=== PATIENT | female | born 1940 | race Caucasian/White ===

== ENCOUNTER 2017-05-05 13:28 | Emergency (ER) | payer MEDICARE, BC ==
[~2017-05-05] VITALS: Ht 172.7 cm; Wt 75.0 kg
[2017-05-05 13:40] VITALS: BP 112/58; PULSE 71; RESP 21; TEMP 99.5; O2SAT 93
[2017-05-05] MEDS ORDERED: EPINEPHrine HCL (1:1000) 1 MG/ML VIAL IM ONE (13:45)
[2017-05-05] MEDS ORDERED: SODIUM CHLORIDE 0.9% FLUSH 10 ML FLUSH IVF PRN (13:45)
[2017-05-05 13:46] VITALS: BP 115/64; PULSE 78; RESP 19; O2SAT 96
[2017-05-05 13:57] VITALS: BP 115/64; PULSE 76
[2017-05-05 14:09] LABS: AUTOMATED NEUTROPHIL # 6.7 TH/MM3 (1.8-7.7); BASOPHIL % 0.4 % (0.0-2.0); EOSINOPHIL # 0.4 TH/MM3 (0-0.4); EOSINOPHIL % 3.9 % (0.0-4.0); HEMATOCRIT 45.5 % (35.0-46.0); HEMO FLAGS DIFF FINAL; LYMPH % 19.2 % (9.0-44.0); LYMPHOCYTE # 1.9 TH/MM3 (1.0-4.8); MEAN CELL VOLUME 95.3 FL (80.0-100.0); MEAN CORPUSCULAR HEMOGLOBIN 31.6 PG (27.0-34.0); MEAN CORPUSCULAR HGB CONC 33.1 % (32.0-36.0); MONO % 7.7 % (0.0-8.0); NEUT % 68.8 % (16.0-70.0); PLATELET COUNT 299 TH/MM3 (150-450); RED BLOOD COUNT 4.78 MIL/MM3 (4.00-5.30); RED CELL DISTRIBUTION WIDTH 13.4 % (11.6-17.2); WHITE BLOOD COUNT 9.7 TH/MM3 (4.0-11.0)
[2017-05-05 14:14] LABS: APTT (PATIENT) 25.9 SEC (24.3-30.1); PROTHROMBIN TIME - PATIENT 11.6 SEC (9.8-11.6)
--- NOTE | 2017-05-05 14:16 | RADRPT ---
EXAM DATE/TIME: 05/05/2017 14:04 [place] COMPARISON: No previous studies available for comparison. INDICATIONS : Chest pains, radiating into left arm with numbness. MEDICAL HISTORY : Myocardial infarction. SURGICAL HISTORY : Coronary artery stent. ENCOUNTER: Initial ACUITY: 2 days PAIN SCORE: 5/10 LOCATION: Left chest FINDINGS: A single view of the chest demonstrates the lungs to be symmetrically aerated without evidence of mas s, infiltrate or effusion. The cardiomediastinal contours are unremarkable. Osseous structures are intact. CONCLUSION: 1. No acute cardiopulmonary findings. Edson Lilly MD on May 05, 2017 at 14:14 Board Certified Radiologist. This report was verified electronically.
[2017-05-05 14:33] LABS: ANION GAP 8 MEQ/L (5-15); BICARBONATE 24.7 MEQ/L (21.0-32.0); CHLORIDE 106 MEQ/L (98-107); GLOMERULAR FILTRATION RATE 48 ML/MIN (>89); MAGNESIUM 1.8 MG/DL (1.5-2.5); SODIUM (NA) 139 MEQ/L (136-145)
[2017-05-05 14:34] LABS: BLOOD UREA NITROGEN 12 MG/DL (7-18); CREATINE KINASE 97 U/L (26-192)
--- NOTE | 2017-05-05 15:44 | PD ---
HPI Chief Complaint: Allergic/Adverse Reaction Time Seen by Provider: 13:32 Travel History International Travel<30 days: No Contact w/Intl Traveler<30days: No Traveled to known affect area: No History of Present Illness HPI 76-year-old female that presents to the ED for evaluation of possible early reaction. Patient came by ambulance for evaluation of this. Patient states that she got bit by something on her legs. Per patient she is not sure what it was but it seems like she got bit mainly on the left leg. Patient started developing this rash on her chest as well as sensation that her throat was closing. Ambulance was called and she was given Solu-Medrol and Benadryl. Patient felt improvement and the itching stopped. Per patient she does not feel swollen or is itchy as before. She does have a significant rash to her chest and back. She also has what appears to be bites to the legs bilaterally more noted on the left than the right. She does have some small soft tissue swelling on the left lower lip. She states that she has some chest discomfort when the symptoms started but not anymore. She denies any fevers chills or sweats. No urinary or bowel movement issues. No allergies to medication. Per patient the chest pain was more like a pressure and was 5 out of 10. She denies any headache. No blurry vision. She does state feeling somewhat sleepy but she attributes this to the Benadryl. [facility] Past Medical History Cardiac Catheterization: Yes Cardiovascular Problems: Yes (STENTS X5) Chest Pain: Yes Diabetes: Yes Patient Takes Glucophage: Yes Social History Alcohol Use: Yes Tobacco Use: No Substance Use: Yes Allergies-Medications (Allergen,Severity, Reaction): Coded Allergies: No Known Allergies (Unverified , 05/05/17) Review of Systems Except as stated in HPI: all other systems reviewed are Neg Physical Exam Narrative GENERAL: SKIN: Warm and dry. Patient has what appears to be an erythematous hives looking rash to the chest especially underneath the breasts and axilla bilaterally. Motor on the left side than the right. Patient does have what appears to be insectlike bites to the lower legs noted on the lateral and medial malleolus. Erythematous and swollen but not painful. Pruritic. Patient does have what appears to be a small amount of soft tissue edema to the left lower lip. HEAD: Atraumatic. Normocephalic. EYES: Pupils equal and round. No scleral icterus. No injection or drainage. ENT: No nasal bleeding or discharge. Mucous membranes pink and moist. Tongue is midline. No uvula deviation. NECK: Trachea midline. No JVD. CARDIOVASCULAR: Regular rate and rhythm. No murmurs, S3, S4. RESPIRATORY: No accessory muscle use. Clear to auscultation. Breath sounds equal bilaterally. GASTROINTESTINAL: Abdomen soft, non-tender, nondistended. Hepatic and splenic margins not palpable. MUSCULOSKELETAL: Extremities without clubbing, cyanosis, or edema. No obvious deformities. Full range of motion of the upper and lower extremities bilaterally. 2+ pulses bilaterally. NEUROLOGICAL: Awake and alert. No obvious cranial nerve deficits. Motor grossly within normal limits. Five out of 5 muscle strength in the arms and legs. Normal speech. PSYCHIATRIC: Appropriate mood and affect; insight and judgment normal. Data Data Last Documented VS Vital Signs Date Time Temp Pulse Resp B/P (MAP) Pulse Ox O2 Delivery O2 Flow Rate FiO2 05/05/17 13:57 76 115/64 05/05/17 13:46 19 96 Room Air 05/05/17 13:40 99.5 Orders Orders Electrocardiogram (05/05/17 13:38) Basic Metabolic Panel (Bmp) (05/05/17 13:38) Ckmb (Isoenzyme) Profile (05/05/17 13:38) Complete Blood Count With Diff (05/05/17 13:38) Magnesium (Mg) (05/05/17 13:38) Prothrombin Time / Inr (Pt) (05/05/17 13:38) Act Partial Throm Time (Ptt) (05/05/17 13:38) Troponin I (05/05/17 13:38) Chest, Single Ap (05/05/17 13:38) Ecg Monitoring (05/05/17 13:38) Bilateral Bp Monitoring (05/05/17 13:38) Iv Access Insert/Monitor (05/05/17 13:38) Oximetry (05/05/17 13:38) Oxygen Administration (05/05/17 13:38) Sodium Chloride 0.9% Flush (Ns Flush) (05/05/17 13:45) Epinephrine (1:1000) Inj (Adrenalin (1:1 (05/05/17 13:45) Labs Laboratory Tests Test 05/05/17 13:45 White Blood Count 9.7 TH/MM3 Red Blood Count 4.78 MIL/MM3 Hemoglobin 15.1 GM/DL Hematocrit 45.5 % Mean Corpuscular Volume 95.3 FL Mean Corpuscular Hemoglobin 31.6 PG Mean Corpuscular Hemoglobin Concent 33.1 % Red Cell Distribution Width 13.4 % Platelet Count 299 TH/MM3 Mean Platelet Volume 8.2 FL Neutrophils (%) (Auto) 68.8 % Lymphocytes (%) (Auto) 19.2 % Monocytes (%) (Auto) 7.7 % Eosinophils (%) (Auto) 3.9 % Basophils (%) (Auto) 0.4 % Neutrophils # (Auto) 6.7 TH/MM3 Lymphocytes # (Auto) 1.9 TH/MM3 Monocytes # (Auto) 0.7 TH/MM3 Eosinophils # (Auto) 0.4 TH/MM3 Basophils # (Auto) 0.0 TH/MM3 CBC Comment DIFF FINAL Differential Comment Prothrombin Time 11.6 SEC Prothromb Time International Ratio 1.0 RATIO Activated Partial Thromboplast Time 25.9 SEC Blood Urea Nitrogen 12 MG/DL Creatinine 1.11 MG/DL Random Glucose 232 MG/DL Calcium Level 9.2 MG/DL Magnesium Level 1.8 MG/DL Sodium Level 139 MEQ/L Potassium Level 4.0 MEQ/L Chloride Level 106 MEQ/L Carbon Dioxide Level 24.7 MEQ/L Anion Gap 8 MEQ/L Estimat Glomerular Filtration Rate 48 ML/MIN Total Creatine Kinase 97 U/L Troponin I LESS THAN 0.02 NG/ML MDM Medical Decision Making Medical Screen Exam Complete: Yes Emergency Medical Condition: Yes Medical Record Reviewed: Yes Interpretation(s) CBC & BMP Diagram 05/05/17 13:45 Calcium Level 9.2, Magnesium Level 1.8 Last Impressions Chest X-Ray 05/05/17 1258 Signed Impressions: Service Date/Time: Friday, May 05, 2017 14:04 - CONCLUSION: 1. No acute cardiopulmonary findings. Edson Lilly MD EKG shows sinus rhythm with no sign of acute ischemia or arrhythmia read by me and attending. Troponin and CK-MB negative. Differential Diagnosis Anaphylaxis versus allergic reaction versus insect bite versus chest pain versus atypical chest pain Narrative Course 76-year-old female that presents to the ED for evaluation of possible allergic reaction. Patient was properly examined and was found to have signs and symptoms consistent with appears to be allergic reaction. Does not appear to be anaphylactic at this time but she does appear to have some soft tissue swelling to the left lower lip. Patient was given epinephrine here as per my attendings recommendations. EKG and blood work was ordered. Patient will be observed for the next 3 hours. Labs and imaging showed no sign of acute disease. Patient's chest pain was completely resolved after EpiPen. Case was discussed with my attending Dr. Yang for agrees with plan. Patient was observed for 3 hours with no worsening of symptoms and actually improvement of her swelling as well as the rash. All her itchiness has improved. She overall looks well and her vitals are stable. I do recommend trial of prednisone and EpiPen as needed. Patient agrees with this plan. Patient was told to follow with PCP. Wear insect repellent. Pants and clothing to prevent insect stings and bites. See ED worsening symptoms. Diagnosis Primary Impression: Allergic reaction Qualified Codes: T78.40XA - Allergy, unspecified, initial encounter Patient Instructions: General Instructions Additional Instructions: Take 25 or 50 mg of Benadryl every 6 hours as needed for age and swelling. I recommend that he at least take 25 mg tonight and tomorrow morning to prevent the swelling and itching to worsen. Otherwise take it as needed. Take the prednisone as prescribed. Use EpiPen only if needed. Avoid contact with the insect that bit you this time. See ED if worst. Follow up with PCP. Med/Other Pt SpecificInfo: Prescription(s) given Scripts Epinephrine Inj (Epipen 2-Chaim Inj) 0.3 Mg/0.3 Ml Pfpen 0.3 MG SQ ONCE Y for ALLERGIC REACTION, #1 PACK 0 Refills Prov: Aung Yang MD 05/05/17 Prednisone (Prednisone) 20 Mg Tab 20 MG PO BID for 5 Days, #10 TAB 0 Refills Prov: Aung Yang MD 05/05/17 Disposition: 01 DISCHARGE HOME Condition: Stable Etienne Barrera May 05, 2017 15:44
[2017-05-05] MEDS ORDERED: PRED20 PO (16:50)
[2017-05-05] MEDS ORDERED: EPIP0.3I SQ (16:50)
[2017-05-05] MEDS ORDERED: [UNRECOGNIZED DRUG - CODE] PO (18:21)
[2017-05-05] MEDS ORDERED: ZETI10TA5 PO (18:21)
[2017-05-05] MEDS ORDERED: PLAV75TA29 PO (18:21)
[2017-05-05] MEDS ORDERED: ATOR40TA16 PO (18:21)
[2017-05-05] MEDS ORDERED: JANU50TA8 PO (18:21)
[2017-05-05] MEDS ORDERED: HYDR12.56 PO (18:21)
[2017-05-05] MEDS ORDERED: VASO10TA8 PO (18:21)
[2017-05-05] MEDS ORDERED: ASPI1TAB91 PO (18:21)
[2017-05-05] MEDS ORDERED: METO100T PO (18:21)
[2017-05-05] MEDS ORDERED: [UNRECOGNIZED DRUG - CODE] PO (18:24)
[2017-05-05] MEDS ORDERED: VITA100018 PO (18:24)
[2017-05-05] MEDS ORDERED: FISH100020 PO (18:24)
--- NOTE | 2017-05-05 23:43 | EKG ---
Date Performed: 05/05/2017 Time Performed: 13:46:28 PTAGE: 76 years EKG: Sinus rhythm LOW QRS VOLTAGE IN PRECORDIAL LEADS BORDERLINE ECG INTERPRETATION BASED ON A DEFAULT AGE OF 39 YEARS NO PREVIOUS TRACING DOCTOR: Chadwick Fernandez Interpretating Date/Time 05/05/2017 23:43:01
== END 2017-05-05 18:08 | disposition home or self-care (01) ==
LOC: NEPC 13:28
DX: T78.40XA Allergy, unspecified, initial encounter (principal); R94.31 Abnormal electrocardiogram [ECG] [EKG]; W57.XXXA Bitten or stung by nonvenomous insect and other nonvenomous arthropods, initial encounter; E11.9 Type 2 diabetes mellitus without complications
CPT/HCPCS: 71010; 80048; 82550; 83735; 84484; 85025; 85610; 85730; 93005; 96372; 99285; J0171